=== PATIENT | female | born 1970 | race Caucasian/White ===

== ENCOUNTER 2016-11-10 09:57 | Emergency (ER) | payer OTHER ==
[~2016-11-10] VITALS: Ht 157.5 cm; Wt 117.0 kg
[2016-11-10 10:11] VITALS: BP 141/99; PULSE 106; RESP 16; O2SAT 96
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
[2016-11-10 13:46] LABS: APPEARANCE,URINE HAZY (CLEAR,HAZY); COLOR,URINE YELLOW (YELLOW); OCCULT BLOOD,URINE LARGE (NEGATIVE); PH,URINE 5.5 (5.0-8.0); UROBILINOGEN,URINE NORMAL (NORMAL)
== END 2016-11-10 12:34 | disposition home or self-care (01) ==
LOC: SED 09:57
DX: M25.512 Pain in left shoulder (principal); V86.52XA Driver of snowmobile injured in nontraffic accident, initial encounter; Y93.89 Activity, other specified; Y92.89 Other specified places as the place of occurrence of the external cause; Y99.8 Other external cause status; F17.200 Nicotine dependence, unspecified, uncomplicated; Z88.0 Allergy status to penicillin; Z88.2 Allergy status to sulfonamides; Z88.8 Allergy status to other drugs, medicaments and biological substances